=== PATIENT | female | born 1950 | race Caucasian/White ===

== ENCOUNTER 2021-11-29 08:07 | Inpatient (IN) | payer MEDICARE, BC ==
[2021-11-24 14:45] LABS: BASOPHILS % (AUTO) 0.7 % (0-1); EOSINOPHILS # (AUTO) 0.2 X10'3 (0-0.9); EOSINOPHILS % (AUTO) 3.4 % (0-6); LYMPHOCYTES # (AUTO) 1.9 X10'3 (1.1-4.8); LYMPHOCYTES % (AUTO) 32.5 % (21-51); MEAN CORPUSCULAR HEMOGLOBIN 31.7 PG (27.0-31.0); MEAN CORPUSCULAR HGB CONC 34.4 g/dL (33.0-36.5); MEAN CORPUSCULAR VOLUME 92.3 FL (78-98); MONOCYTES # (AUTO) 0.6 X10'3 (0-0.9); NEUTROPHILS % (AUTO) 53.4 % (42-75); PRE OP HEMATOCRIT 39.6 % (35.0-45.0); PRE OP HEMOGLOBIN 13.6 g/dL (12.0-16.0); PRE OP PLATELET COUNT 285 X10'3 (140-440)
[2021-11-24 15:00] LABS: ALBUMIN 3.6 G/DL (3.4-5.0); ALKALINE PHOSPHATASE 75 IU/L (46-116); BLOOD UREA NITROGEN 13 MG/DL (7-18); BUN/CREATININE RATIO 15.1 (6.6-38.0); CHLORIDE 103 MMOL/L (99-107); CREATININE 0.86 MG/DL (0.40-0.90); PRE OP ALT 24 U/L (30-65); PRE OP ANION GAP 5 (8-16); PRE OP AST 22 U/L (10-37); PRE OP BILIRUB, TOTAL 0.3 MG/DL (0.0-1.0); PRE OP GLUCOSE 121 MG/DL (70-104); PRE OP POTASSIUM 4.1 MMOL/L (3.4-5.1); PRE OP SODIUM 141 MMOL/L (135-145); TOTAL CARBON DIOXIDE 32.9 MMOL/L (24-32); TOTAL PROTEIN 7.3 G/DL (6.4-8.2); eGFR 65 ML/MIN
[~2021-11-29] VITALS: Ht 157.5 cm; Wt 58.5 kg
[2021-11-29] VITALS (10 sets, daily range): BP systolic 126–158; BP diastolic 71–80
[~2021-11-29 08:07] MED LIST: CHOL200012 PO; IBUP-24 PO; VANCOMYCIN INJ 1000 MG in NORMAL SALINE 250ml IV.SOLN IV ONE; cefazolin/dext.iso 2gm/50ml IV ONE; famotidine 20mg tablet PO ONE; ringers solution, lacted 1,000 ML IV SCH
[2021-11-29] MEDS ORDERED: tranexamic acid 650mg tablet PO ONE (09:47)
[2021-11-29] MEDS ORDERED: sevoflurane 250ml liquid IH ONE (11:36)
[2021-11-29] MEDS ORDERED: fentaNYL/PF 50MCG/1 ML 2ML syringe ONE (11:45)
[2021-11-29] MEDS ORDERED: midazolam 1 mg/ML 2ml injection ONE (11:46)
[2021-11-29] MEDS ORDERED: dexamethasone sod phosphate 4mg/ml inj. ONE (12:23)
[2021-11-29] MEDS ORDERED: ROPIVAcaine 0.5% (5mg/ml) 30ml vial ONE ×2 (12:23→12:32)
[2021-11-29] MEDS ORDERED: LIDOcaine 1%/PF 5ML 10 MG/ML VIAL ONE (12:23)
[2021-11-29] MEDS ORDERED: ondansetron/PF 4mg/2ml inj ONE (12:23)
[2021-11-29] MEDS ORDERED: propofol inj 20 ML IV ONE (12:23)
[2021-11-29] MEDS ORDERED: ringers solution, lacted 1,000 ML IV SCH (12:30)
[2021-11-29] MEDS ORDERED: morphine 2 MG/ML inj. syringe IV PRN (12:30)
[2021-11-29] MEDS ORDERED: HYDROmorphone/PF 0.2 MG/ML SYRINGE IV PRN (12:30)
[2021-11-29] MEDS ORDERED: ondansetron/PF 4mg/2ml inj IV PRN ×2 (12:30→13:45)
[2021-11-29] MEDS ORDERED: ROPIVAcaine 0.2% (10 MG/5 ML) BOLUS INJECTION INTERSCALE PRN (12:30)
[2021-11-29] MEDS ORDERED: phenylephrine 10mg/ml inj. ONE (12:54)
[2021-11-29] MEDS ORDERED: glycopyrrolate 0.2mg/ml inj ONE (12:54)
[2021-11-29] MEDS ORDERED: ROPIVAcaine 0.2%/PF PUMP/bolus 545 ML INTERSCALE SCH (13:00)
[2021-11-29] MEDS ORDERED: ePHEDrine 50MG/ML INJ. ONE (13:18)
--- NOTE | 2021-11-29 13:36 | NUR ---
Received from OR via BED IN STABLE CONDITION , accompanied by Anesthesiologist and HEAD OF BIOLOGY report given by HEAD OF BIOLOGY AND Anesthesiolgist. Addendum: 11/29/21 at 1352 by Leona Yi RN Amended: Links added.
[2021-11-29] MEDS ORDERED: diphenhydrAMINE 25mg capsule PO PRN ×2 (13:45)
[2021-11-29] MEDS ORDERED: oxyCODONE IR 5mg (immed. release) tablet PO PRN ×2 (13:45)
[2021-11-29] MEDS ORDERED: bisacodyl 10mg suppository rectal RC PRN (13:45)
[2021-11-29] MEDS ORDERED: acetaminophen 325mg tablet PO PRN (13:45)
[2021-11-29] MEDS ORDERED: HYDROmorphone 1 mg/ml syringe IV PRN (13:45)
[2021-11-29] MEDS ORDERED: HYDROmorphone inj. 0.5 MG/0.5 ML DISP.SYRIN IV PRN (13:45)
[2021-11-29] MEDS ORDERED: magnesium hydroxide 30ml (MOM) UD suspension PO PRN (13:45)
--- NOTE | 2021-11-29 14:27 | NUR ---
received report from ANGELA Giang. awaiting patient arrival
--- NOTE | 2021-11-29 14:36 | NUR ---
PATIENT DISCHARGED IN STABLE CONDITION AFTER REPORT GIVEN. PATIENT TRANSPORTED VIA BE WITH [facility]. Addendum: 11/29/21 at 1500 by Leona Yi RN Amended: Links added.
[2021-11-29] MEDS: potassium cl 20mEq in 1/2 NS 1,000 ML IV SCH ×2 (15:11→21:45)
[2021-11-29] MEDS: acetaminophen 325mg tablet PO SCH ×2 (15:41→20:18)
[2021-11-29] MEDS: ceFAZolin/D5W- 1GM premix 50 ML IV SCH ×2 (15:47→23:29)
--- NOTE | 2021-11-29 18:21 | NUR ---
Problems reprioritized. Patient report given, questions answered & plan of care reviewed with ANGELA Miller.
[2021-11-29] MEDS ORDERED: vancomycin/NS 1 GM ADD-VANTAGE 250 ML IV SCH (20:00)
[2021-11-29] MEDS ORDERED: sennosides 8.6mg tablet PO SCH (21:00)
[2021-11-30] VITALS: BP 110/62
[2021-11-30] MEDS: acetaminophen 325mg tablet PO SCH ×2 (02:22→08:00)
[2021-11-30] MEDS: potassium cl 20mEq in 1/2 NS 1,000 ML IV SCH (02:27)
[2021-11-30 06:38] LABS: BASOPHILS % (AUTO) 0.2 % (0-1); EOSINOPHILS % (AUTO) 0.1 % (0-6); HEMATOCRIT 32.2 % (35.0-45.0); LYMPHOCYTES # (AUTO) 2.2 X10'3 (1.1-4.8); LYMPHOCYTES % (AUTO) 25.1 % (21-51); MEAN CORPUSCULAR HEMOGLOBIN 31.7 PG (27.0-31.0); MEAN CORPUSCULAR HGB CONC 34.1 g/dL (33.0-36.5); MEAN CORPUSCULAR VOLUME 92.8 FL (78-98); MEAN PLATELET VOLUME 7.1 FL (7.4-10.4); MONOCYTES # (AUTO) 1.2 X10'3 (0-0.9); MONOCYTES % (AUTO) 13.9 % (2-12); NEUTROPHILS # (AUTO) 5.3 X10'3 (1.8-7.7); NEUTROPHILS % (AUTO) 60.7 % (42-75); PLATELET COUNT 246 X10'3 (140-440); RED BLOOD COUNT 3.47 X10'6 (4.20-5.60); RED CELL DISTRIBUTION WIDTH 12.9 % (11.5-14.5); WHITE BLOOD COUNT 8.8 X10'3 (4.5-11.0)
--- NOTE | 2021-11-30 06:46 | NUR ---
Gave report to Jarrett MILLER
[2021-11-30 06:52] LABS: ANION GAP 9 (8-16); CHLORIDE 105 MMOL/L (99-107); POTASSIUM 4.4 MMOL/L (3.5-5.1); SODIUM 139 MMOL/L (135-145); TOTAL CARBON DIOXIDE 24.7 MMOL/L (24-32)
[2021-11-30 08:00] VITALS: BP 97/53
[2021-11-30] MEDS ORDERED: cholecalciferol (vitamin D3) 1,000 unit (25mcg) tablet PO SCH (08:00)
[2021-11-30] MEDS ORDERED: aspirin 325mg tablet PO SCH (08:30)
[2021-11-30 11:00] VITALS: BP 126/45
[2021-11-30] MEDS ORDERED: HYDR-3965 PO (12:39)
[2021-12-01] MEDS ORDERED: acetaminophen 325mg tablet PO PRN (13:45)
== END 2021-11-30 13:26 | disposition home or self-care (01) | DRG 483 ==
LOC: PAS 08:07 → EDSTATUS 12:30 → SUR 3N 13:47
PROVIDERS: ADMIT Orthopaedic Surgery; ATTEND Orthopaedic Surgery
PROC: 0LS30ZZ Reposition Right Upper Arm Tendon, Open Approach (ICD-10-PCS; 2021-11-29)
PROC: 3E0T3BZ Introduction of Anesthetic Agent into Peripheral Nerves and Plexi, Percutaneous Approach (ICD-10-PCS; 2021-11-29)
PROC: 0RRJ0JZ Replacement of Right Shoulder Joint with Synthetic Substitute, Open Approach (ICD-10-PCS; principal; 2021-11-29 11:36)
DX: M19.011 Primary osteoarthritis, right shoulder (principal); D62 Acute posthemorrhagic anemia; M65.811 Other synovitis and tenosynovitis, right shoulder; G89.29 Other chronic pain; Z79.899 Other long term (current) drug therapy
CPT/HCPCS: 36415; 73020; 80051; 80053; 82948; 85025; 87081; 97161; 97530; G0378; J0690; J1100; J2250; J2370; J2405; J2704; J2795; J3010; J3370; J3480; J3490; J7120; U0003; U0005

== ENCOUNTER 2023-10-03 09:59 | Outpatient (CLI) | payer MEDICARE, BC ==
[2023-10-03] VITALS (21 sets, daily range): BP systolic 124–154; BP diastolic 52–92; PULSE 57–65
[~2023-10-03 09:59] MED LIST changes: -VANCOMYCIN INJ 1000 MG in NORMAL SALINE 250ml IV.SOLN IV ONE; -cefazolin/dext.iso 2gm/50ml IV ONE; -famotidine 20mg tablet PO ONE; -ringers solution, lacted 1,000 ML IV SCH
== END 2023-10-03 23:59 | disposition home or self-care (01) ==
LOC: CARD DIAG 09:59
PROVIDERS: ATTEND Internal Medicine Interventional Cardiology
DX: R42 Dizziness and giddiness (principal)
CPT/HCPCS: 93660